=== PATIENT | male | born 1990 | race Caucasian/White ===

== ENCOUNTER 2022-03-03 14:04 | Outpatient (CLI) | payer OTHER, SELFPAY ==
[2022-03-03 16:02] LABS: Liquefaction Semen Complete in 30 min. (<30 minutes); Semen Color Opaque (Grey-opaque); Semen Immotility 42 %; Semen Non-Progressive Motility 12 %; Semen Progressive Motility 46 % (>32); Semen Viscosity Increased (Not Increa.)
[2022-03-03 16:03] LABS: Semen Morphology Result to Follow; Semen Total Motility 58 (>40% (PM+NP)); Sperm Count 72.2 Mil/mL (60-150 million/mL)
[2022-03-10 20:11] LABS: Fructose, Semen 156 mg/dL (150-600)
== END 2022-03-03 14:05 | disposition home or self-care (01) ==
LOC: CHSLAB 14:14
PROVIDERS: PCP Family Medicine; Visit Provider Nurse Practitioner Family
DX: Z31.9 Encounter for procreative management, unspecified (principal)
CPT/HCPCS: 82757; 88160; 88321; 89320